=== PATIENT | female | born 1955 | race Caucasian/White ===

== ENCOUNTER 2020-03-17 14:31 | Outpatient (CLI) | payer OTHER, SELFPAY ==
--- NOTE | ~2020-03-17 | MM_ITS ---
EXAMINATION: MM screening [facility] BI w bobby HISTORY: Screening mammogram TECHNIQUE: Craniocaudal and mediolateral oblique 3-D tomosynthesis images were obtained and synthetic 2-D images were generated. CAD analysis was submitted and interpreted. COMPARISON: 03/14/2019, 03/10/2018, 03/06/2017 BREAST PARENCHYMAL COMPOSITION: There are scattered areas of fibroglandular density. FINDINGS: Scattered benign-appearing calcifications are present. Again noted is a stable asymmetry in the posterior third of the left breast on the craniocaudal view. There is no evidence of suspicious mass, calcification, or architectural distortion to suggest malignancy in either breast. There has be en no suspicious interval change. IMPRESSION: 1. No mammographic evidence of malignancy. 2. Recommend routine screening mammography in one year. BI-RADS Category 2: Benign finding(s). Reviewed, dictated and finalized at location A.
== END 2020-03-17 14:32 | disposition home or self-care (01) ==
LOC: ANHIMG 14:39
PROVIDERS: Visit Provider Family Medicine
DX: Z12.31 Encounter for screening mammogram for malignant neoplasm of breast (principal)
CPT/HCPCS: 77063; 77067

== ENCOUNTER 2020-05-24 14:16 | Outpatient (CLI) | payer OTHER, SELFPAY ==
--- NOTE | ~2020-05-24 | CT_ITS ---
EXAMINATION: CT abdomen wo con DATE: 05/24/2020 15:17 INDICATION: Left adrenal masses TECHNIQUE: Computed tomography (CT) of the abdomen was performed without intravenous contrast. The do se-length product (DLP) was 902.10 mGy-cm. Automated exposure control and iterative reconstruction te chnique were employed. COMPARISON: 04/16/2019 FINDINGS: Minimal dependent atelectasis is present in the lung bases. The heart size is normal. There is an unchanged 2.5 cm low-attenuation lesion with peripheral calcification in the spleen, likely a hemangioma. The spleen is otherwise normal. The liver, pancreas, and right adrenal gland are normal. The gallbladder is surgically absent. There are two low-attenuation masses of the left adrenal gland measuring 1.5 and 1.0 cm, most consistent with adenomas given their density and lack of interval benitez ge. There is a 3 mm nonobstructing stone of the right kidney. There are no pathologically enlarged ab dominal lymph nodes. There is no free intraperitoneal gas or evidence of bowel obstruction. There is calcified atherosclerosis of the aorta and many of the other arteries. IMPRESSION: 1. Stable low-density left adrenal masses, most consistent with adenomas. Reviewed, dictated and finalized at location A.
== END 2020-05-24 14:17 | disposition home or self-care (01) ==
LOC: ANHIMG 14:23
PROVIDERS: PCP Family Medicine; Visit Provider Family Medicine
DX: R19.09 Other intra-abdominal and pelvic swelling, mass and lump (principal); E27.9 Disorder of adrenal gland, unspecified
CPT/HCPCS: 74150

== ENCOUNTER 2021-03-20 13:54 | Outpatient (CLI) | payer OTHER, SELFPAY ==
--- NOTE | ~2021-03-20 | DEXA_ITS ---
Bone Density Report Name: Peggy Penaloza Age: 65 Sex: Female Ethnicity: White Date of : 1955 Indication: postmenopausal; cancer; hysterectomy; Referring Provider: Rick, Daly Cortez Study: Bone densitometry was performed. Exam Date: March 20, 2021 Accession number: [id number] Bone Density: Region BMD T-score Z-score Classification AP Spine (L1, L3, L4) 0.980 -0.7 1.2 Normal Femoral Neck (Left) 0.625 -2.0 -0.4 Osteopenia Total Hip (Left) 0.952 0.1 1.4 Normal Total Hip Bilateral Avg 0.937 -0.1 1.3 Normal Femoral Neck (Right) 0.653 -1.8 -0.2 Osteopenia Total Hip (Right) 0.920 -0.2 1.1 Normal World Health Organization criteria for BMD impression classify patients as: Normal (T-score at or above -1.0), Osteopenia (T-score between -1.0 and -2.5), or Osteoporosis (T-score at or below -2.5). 10-year Fracture Risk(1): Major Osteoporotic Fracture 9.9% Hip Fracture 1.4% Reported Risk Factors: [place] (), Neck BMD=0.625, BMI=34.7 (1) FRAX(R) Version 3.08. Fracture probability calculated for an untreated patient. Fracture probability may be lower if the patient has received treatment. Previous Exams: Region Exam Age BMD T-score BMD Change BMD Change Date g/cm2 vs Baseline vs Previous AP Spine(L1, L3, L4) 03/20/2021 65 0.980 -0.7 -0.132(-11.9%) -0.024(-2.4%)* 02/16/2015 59 1.004 -0.4 -0.108(-9.7%)# -0.009(-0.9%)# 01/24/2012 56 1.013 -0.4 -0.098(-8.9%)# -0.098(-8.9%)# 12/07/2009 53 1.111 0.5 Total Hip(Left) 03/20/2021 65 0.952 0.1 -0.144(-13.1%) -0.028(-2.9%)* 02/16/2015 59 0.980 0.3 -0.116(-10.5%) 0.000(0.0%)# 01/24/2012 56 0.980 0.3 -0.116(-10.6%) -0.116(-10.6%) 12/07/2009 53 1.096 1.3 Total Hip(Right) 03/20/2021 65 0.920 -0.2 -0.005(-0.5%)# -0.016(-1.7%) 02/16/2015 59 0.937 0.0 0.012(1.3%)# 0.033(3.7%)# 01/24/2012 56 0.904 -0.3 -0.021(-2.3%)# -0.021(-2.3%)# 12/07/2009 53 0.925 -0.1 *Denotes significance at 95% confidence level, LSC for AP Spine = 0.022 g/cm2, LSC for Total Hip = 0.027 g/cm2 Clinical Information Provided by Patient: Has the following medical conditions: Cancer, Hysterectomy Patient maximum height was 63 Menopause Age: 39 No regular weight bearing exercise Does not regularly consume dairy products Drinks caffeinated beverages Onset of menses at age 11 Number of children 1 Impression: The patient has low bone mass, based on t
--- NOTE | ~2021-03-20 | MM_ITS ---
EXAMINATION: MM screening [facility] BI w bobby HISTORY: Screening mammogram TECHNIQUE: Craniocaudal and mediolateral oblique 3-D tomosynthesis images were obtained and synthetic 2-D images were generated. CAD analysis was submitted and interpreted. COMPARISON: , 03/14/2019, 03/10/2018 bilateral digital screening mammogram examinations BREAST PARENCHYMAL COMPOSITION: There are scattered areas of fibroglandular density. FINDINGS: There are 2 biopsy markers on the left; history of prior benign left breast biopsy. Occasio nal bilateral benign breast calcifications. There is no evidence of suspicious mass, calcification, o r architectural distortion to suggest malignancy in either breast. There has been no suspicious inter ebony change. IMPRESSION: 1. No mammographic evidence of malignancy. 2. Recommend routine screening mammography in one year. BI-RADS Category 2: Benign finding(s). Reviewed, dictated and finalized at location A.
== END 2021-03-20 13:55 | disposition home or self-care (01) ==
LOC: ANHIMG 13:59
PROVIDERS: PCP Family Medicine; Visit Provider Internal Medicine
DX: Z12.31 Encounter for screening mammogram for malignant neoplasm of breast (principal); Z13.820 Encounter for screening for osteoporosis; M85.852 Other specified disorders of bone density and structure, left thigh; M85.851 Other specified disorders of bone density and structure, right thigh
CPT/HCPCS: 77063; 77067; 77080

== ENCOUNTER 2021-08-22 08:17 | Outpatient (CLI) | payer OTHER, SELFPAY ==
--- NOTE | ~2021-08-22 | XR_ITS ---
EXAMINATION: XR barium swallow EXAM DATE: 08/22/2021 09:02 INDICATION: Pharyngeal esophageal dysphagia. TECHNIQUE: Standard thick followed by thin contrast barium esophagram examination was performed by Dr [place], radiologist. Pulsed dose reduction fluoroscopy was used with fluoroscopic time of 0.5 . The DAP for this procedure was 1.15 Gycm2. A total of 91 images obtained for the exam. There is no prior study for comparison. FINDINGS: The pharynx is symmetric and without evidence of mass lesion or mucosal irregularity. Ther e is no esophageal stricture or mass identified. There are no esophageal diverticula. Gastroesophag eal junction is normal in appearance. IMPRESSION: Normal exam. Reviewed, dictated and finalized at location A. IMPRESSION: Normal exam.
== END 2021-08-22 08:18 | disposition home or self-care (01) ==
PROVIDERS: PCP Internal Medicine; Visit Provider Internal Medicine
DX: R13.14 Dysphagia, pharyngoesophageal phase (principal)
CPT/HCPCS: 74220

== ENCOUNTER 2022-04-05 15:03 | Outpatient (CLI) | payer OTHER, SELFPAY ==
--- NOTE | ~2022-04-05 | MM_ITS ---
EXAMINATION: MM screening [facility] BI w bobby HISTORY: Screening TECHNIQUE: Craniocaudal and mediolateral oblique 3-D tomosynthesis images were obtained and synthetic 2-D images were generated. CAD analysis was submitted and interpreted. COMPARISON: Comparison to multiple prior studies sequentially, with oldest reviewed study dated 02/22. BREAST PARENCHYMAL COMPOSITION: There are scattered areas of fibroglandular density. FINDINGS: There is no evidence of suspicious mass, calcification, or architectural distortion to sugg est malignancy in either breast. There has been no suspicious interval change. IMPRESSION: 1. No mammographic evidence of malignancy. 2. Recommend routine screening mammography in one year. BI-RADS Category 1: Negative Reviewed, dictated and finalized at location A.
== END 2022-04-05 15:04 | disposition home or self-care (01) ==
LOC: ANHIMG 15:04
PROVIDERS: PCP Internal Medicine; Visit Provider Internal Medicine
DX: Z12.31 Encounter for screening mammogram for malignant neoplasm of breast (principal)
CPT/HCPCS: 77063; 77067

== ENCOUNTER 2022-11-06 00:33 | Day surgery (SDC) | payer OTHER, SELFPAY ==
[2022-10-26 09:46] VITALS: BMI 36.6
[2022-11-06 06:56] VITALS: BP 157/74; PULSE 77; RESP 18; TEMP 36.1; O2SAT 100
[2022-11-06] MEDS: LACTATED RINGERS 1,000 ML 150 ML IV CONT (07:18)
[2022-11-06 07:19] LABS: Glucose Point of Care 155 mg/dl (65-105)
--- NOTE | 2022-11-06 07:21 | PM.HPGS ---
History of Present Illness History of Present Illness Consent: Risks, benefits, and alternatives have been discussed and questions answered. Patient agrees to proceed with procedure. Chief complaint: Hx of colon polyps Narrative: Peggy Penaloza is a 66 year old female Presents for screening colonoscopy. Patient's current weight appetite and bowel movements are normal. She denies abdominal pain. She has had no bleeding. Family history is significant her father had colon cancer. Patient's brother had colon polyps. Patient previously has had polyps herself. Most recent screening exam 5 years ago was unremarkable. Review of Systems Review of Systems: Review of systems noncontributory. ON LICENSE OF [facility] Social History Social History Smoking status: Never smoker Alcohol intake: current Alcohol use details: on occasion Substance use: never Substance use type: does not use Living arrangements: with family Spiritual care concerns: No Meds Home Medications and Allergies Home Medications Medication Instructions Recorded Confirmed Type sodium,potassium,mag sulfates 17.5 See Rx Instructions PO .COMPLEX 09/18/22 10/26/22 Rx gram-3.13 gram-1.6 gram oral soln #354 mL (Suprep Bowel Prep Kit) amlodipine 5 mg tablet 5 mg PO DAILY 10/26/22 11/06/22 History aspirin 81 mg PO DAILY 10/26/22 10/26/22 History cinnamon bark 500 mg capsule 500 mg PO DAILY 10/26/22 10/26/22 History (Cinnamon) losartan 100 mg tablet 100 mg PO DAILY 10/26/22 11/06/22 History metformin 500 mg tablet 500 mg PO DAILY 10/26/22 10/26/22 History metoprolol tartrate 50 mg tablet 50 mg PO BID 10/26/22 11/06/22 History multivit with minerals-iron 18 1 tablet PO DAILY 10/26/22 10/26/22 History mg-folic ac 400 mcg-vit K 25 mcg tablet (Adults Multivitamin) omeprazole 20 mg capsule,delayed 20 mg PO DAILY 10/26/22 10/26/22 History release rosuvastatin 10 mg tablet 10 mg PO DAILY 10/26/22 10/26/22 History egxsspv-rccw-lxstt-oreg-capryl 1 tab-cap PO DAILY 10/26/22 10/26/22 History Allergies Allergy/AdvReac Type Severity Reaction Status Date / Time No Known Allergies Allergy Verified 11/06/22 06:52 Vital Signs Vital Signs - 24 hr 11/06/22 06:56 Temperature 97 F L Pulse Rate 77 Respiratory Rate 18 Blood Pressure 157/74 H Pulse Oximetry 100 Oxygen Delivery Room Air Exam Narrative: Physical exam reveals patient to be alert. Vital signs stable. HEENT exam is unremarkable. Patient is anicteric. Lungs are clear to auscultation and percussion. Heart is without murmur or extra sounds. Abdominal exam bowel sounds are present soft nontender with no organomegaly. Digital external rectal exam is normal. Assessment and Plan Assessment and plan (1) Encounter for screening colonoscopy: Code(s): Z12.11 - Encounter for screening for malignant neoplasm of colon Status: Acute (2) Family history of colon cancer in father: Code(s): Z80.0 - Family history of malignant neoplasm of digestive organs Status: Acute Assessment and Plan: patient's father had colon cancer brother had colon polyps. Patient herself has had colon polyps. Plan for surveillance colonoscopy at 5 year intervals.
--- NOTE | 2022-11-06 07:29 | WPDANESEPPF ---
Anes - Initial Pre Proc Eval Procedure: Operation Date: 11/06/22 08:00 Proposed Procedures p Screening Colonoscopy - Brad Weber MD Date/Time: 11/06/22 07:29 Surgeon: Brad Weber MD Pre Op Diagnosis: Hx of colon polyps Patient Data Age: 66 Gender: F Height: 1.57 m Weight: 90.7 kg Last Vital Signs Temp 97 F L 11/06/22 06:56 Pulse 77 11/06/22 06:56 Resp 18 11/06/22 06:56 BP 157/74 H 11/06/22 06:56 Pulse Ox 100 11/06/22 06:56 O2 Del Method Room Air 11/06/22 06:56 Allergies Allergy/AdvReac Type Severity Reaction Status Date / Time No Known Allergies Allergy Verified 11/06/22 06:52 Home Medications Medication Instructions Recorded Confirmed Type sodium,potassium,mag sulfates 17.5 See Rx Instructions PO .COMPLEX 09/18/22 10/26/22 Rx gram-3.13 gram-1.6 gram oral soln #354 mL (Suprep Bowel Prep Kit) amlodipine 5 mg tablet 5 mg PO DAILY 10/26/22 11/06/22 History aspirin 81 mg PO DAILY 10/26/22 10/26/22 History cinnamon bark 500 mg capsule 500 mg PO DAILY 10/26/22 10/26/22 History (Cinnamon) losartan 100 mg tablet 100 mg PO DAILY 10/26/22 11/06/22 History metformin 500 mg tablet 500 mg PO DAILY 10/26/22 10/26/22 History metoprolol tartrate 50 mg tablet 50 mg PO BID 10/26/22 11/06/22 History multivit with minerals-iron 18 1 tablet PO DAILY 10/26/22 10/26/22 History mg-folic ac 400 mcg-vit K 25 mcg tablet (Adults Multivitamin) omeprazole 20 mg capsule,delayed 20 mg PO DAILY 10/26/22 10/26/22 History release rosuvastatin 10 mg tablet 10 mg PO DAILY 10/26/22 10/26/22 History ekqcghz-zrex-eipya-oreg-capryl 1 tab-cap PO DAILY 10/26/22 10/26/22 History Laboratory Tests 11/06/22 07:04 POC Capillary Glucose 155 mg/dl H mg/dl (65-105) Patient hx anesthesia problems: none Family hx anesthesia problems: none Results Review: All pre-operative results and documents have been reviewed as part of the pre-operative evaluation. [facility] Social History Social History Smoking status: Never smoker Alcohol intake: current Alcohol use details: on occasion Substance use: never Substance use type: does not use Living arrangements: with family Spiritual care concerns: No Anes - Eval Final PreProcedure Day of Procedure 11/06/22 07:29 Patient weight: obese Heart: regular rate and rhythm Lungs: clear to auscultation Airway: Mallampati scale class II Neurological: alert and oriented Last oral intake: >/= 8 hours ASA classification: III Emergent: no Anesthetic plan: proceed Anesthesia type and monitoring: general GIVS and standard monitoring Results Review: All pre-operative results and documents have been reviewed as part of the pre-operative evaluation. Informed Consent: The patient's anesthetic plan and its attendant risks and benefits were discussed with the patient/family/POA. Questions were solicited and answers provided to the satisfaction of the patient/family/POA.
[2022-11-06 08:17] VITALS: BP 145/67; PULSE 84; RESP 18; O2SAT 100
[2022-11-06 08:27] VITALS: BP 146/74; PULSE 86; RESP 18; O2SAT 99
[2022-11-06 08:37] VITALS: BP 132/62; PULSE 72; RESP 18; O2SAT 98
== END 2022-11-06 08:46 | disposition home or self-care (01) ==
PROVIDERS: PCP Internal Medicine; Visit Provider Internal Medicine Gastroenterology
PROC: 0DJD8ZZ Inspection of Lower Intestinal Tract, Via Natural or Artificial Opening Endoscopic (ICD-10-PCS; CPT 45378; principal; 2022-11-06 08:00)
DX: Z12.11 Encounter for screening for malignant neoplasm of colon (principal); K64.8 Other hemorrhoids; K57.30 Diverticulosis of large intestine without perforation or abscess without bleeding; Z86.010 Personal history of colon polyps; Z80.0 Family history of malignant neoplasm of digestive organs; Z79.82 Long term (current) use of aspirin; Z79.84 Long term (current) use of oral hypoglycemic drugs; E66.9 Obesity, unspecified; Z68.36 Body mass index [BMI] 36.0-36.9, adult
CPT/HCPCS: G0105; 82948; J2704; J7120

== ENCOUNTER 2023-06-28 08:33 | Outpatient (CLI) | payer OTHER, SELFPAY ==
--- NOTE | ~2023-06-28 | MM_ITS ---
EXAMINATION: MM screening [facility] BI w bobby HISTORY: Screening mammogram TECHNIQUE: Craniocaudal and mediolateral oblique 3-D tomosynthesis images were obtained and synthetic 2-D images were generated. Bilateral rotated lateral CC views. CAD analysis was submitted and interp reted. COMPARISON: 04/05/2022, 03/20/2021, 03/17/2020 bilateral screening mammogram examinations BREAST PARENCHYMAL COMPOSITION: There are scattered areas of fibroglandular density. FINDINGS: There are 2 biopsy markers on the left; history of 3 prior benign left breast biopsies. Occasional bilateral benign calcifications. There is no evidence of suspicious mass, calcification, o r architectural distortion to suggest malignancy in either breast. There has been no suspicious inter ebony change. IMPRESSION: 1. No mammographic evidence of malignancy. 2. Recommend routine screening mammography in one year. BI-RADS Category 2: Benign finding(s). Reviewed, dictated and finalized at location A.
== END 2023-06-28 08:34 | disposition home or self-care (01) ==
LOC: ANHIMG 08:36
PROVIDERS: PCP Internal Medicine; Visit Provider Internal Medicine
DX: Z12.31 Encounter for screening mammogram for malignant neoplasm of breast (principal)
CPT/HCPCS: 77063; 77067

== ENCOUNTER 2024-07-02 16:42 | Outpatient (CLI) | payer OTHER, SELFPAY ==
--- NOTE | ~2024-07-02 | MM_ITS ---
EXAMINATION: MM screening [facility] BI w bobyb HISTORY: Screening TECHNIQUE: Craniocaudal and mediolateral oblique 3-D tomosynthesis images were obtained and synthetic 2-D images were generated. CAD analysis was submitted and interpreted. COMPARISON: Comparison to multiple prior studies sequentially, with oldest reviewed study dated 03/10. BREAST PARENCHYMAL COMPOSITION: Not dense: There are scattered areas of fibroglandular density. FINDINGS: There is no evidence of suspicious mass, calcification, or architectural distortion to sugg est malignancy in either breast. There has been no suspicious interval change. IMPRESSION: 1. No mammographic evidence of malignancy. 2. Recommend routine screening mammography in one year. BI-RADS Category 1: Negative Reviewed, dictated and finalized at location B.
== END 2024-07-02 16:43 | disposition home or self-care (01) ==
LOC: ANHIMG 16:44
PROVIDERS: PCP Internal Medicine; Visit Provider Internal Medicine
DX: Z12.31 Encounter for screening mammogram for malignant neoplasm of breast (principal)
CPT/HCPCS: 77063; 77067

== ENCOUNTER 2025-07-28 14:49 | Outpatient (CLI) | payer OTHER, SELFPAY ==
--- OUTSIDE RECORDS SUMMARY | 2025-07-06 06:45 | XMS_ITS | Continuity of Care Document ---
Author Organization [employer] [place] Address [address] [place] [address] Phone Care Team Providers Care Customer Consultant Name Role Phone Daly Cabrera MD Unavailable Unavailable Allergies, Adverse Reactions, Alerts Substance Reaction Status Criticality No Known Allergies Active No Inform ation Medications Medication Instructions Dosage Effective Dates (start - stop) Status Comments METFORMIN HCL ER 500 MG TABLET TAKE 1 TABLET BY MOUTH DAILY WITH EVENING MEAL FOR 7 DAYS, THEN TAKE 2 TABLETS DAILY - Active ROSUVASTATIN CALCIUM 10 MG TAB TAKE 1 TABLET BY MOUTH EVERY DAY - Active OMEPRAZOLE DR 20 MG CAPSULE TAKE 1 CAPSULE BY MOUTH EVERY DAY 30 MINUTES TO 1 HOUR BEFORE A MEAL - Active LOSARTAN-HCTZ 100-12.5 MG TAB TAKE 1 TABLET BY MOUTH EVERY DAY - Active ESCITALOPRAM 5 MG TABLET TAKE 1 TABLET BY MOUTH EVERY DAY - Active turmeric root extract 500 mg capsule take 1 capsule by mouth daily - Active AMLODIPINE BESYLATE 5 MG TAB TAKE 1 TABLET BY MOUTH EVERY DAY - Active METOPROLOL TARTRATE 50 MG TAB TAKE 1 TABLET BY MOUTH TWICE A DAY WITH FOOD - Active aspirin 81 mg tablet,delayed release take 1 tablet by oral route every day 81 MG - Active One-A-Day Women's 50 Plus 400 mcg-20 mcg tablet 1 tablet daily - Active cetirizine 10 mg tablet take 1 tablet by oral route every day 10 MG - Active biotin 10,000 mcg disintegrating tablet take one tablet once a day - Active metformin ER 500 mg tablet,extended release 24 hr take 3 tablet by oral route every day with the evening meal 1500 MG - No Longer Active Procedures Procedure Date FALL RISK ASSESSMENT DOC'D PRES/ABSN URINE INCON ASSESS Pt inelig neg scrn depres MED LIST DOCD IN RCRD OFFICE [id number] Visit Complexity Inherent To E/M 2024 BODY MASS INDEX DOCD SYST BP >= 140 MM HG6 IT DIAST BP < 80 MM HG CBC, INC PLATELETS AND DIFFERENTIAL COMPREHEN METABOLIC PANEL CMP HEMOGLOBIN A1C HGA1C, GLYCO LIPID PANEL MICROALBUMIN, QN (URINE) CREATININE, (U-R) ROUTINE VENIPUNCTURE IL BASIC METABOLIC PANEL(BMP) PARATHYROID HORMONE (PTH) VITAMIN D, 25-HYDROXY OFFICE [id number]-TIF-[id number] Visit Complexity Inherent To E/M 2024 BODY MASS INDEX DOCD SYST BP GE 130 - 139MM HG DIAST BP < 80 MM HG ROUTINE VENIPUNCTURE IL BASIC METABOLIC PANEL(BMP) HEMOGLOBIN A1C HGA1C, GLYCO ROUTINE VENIPUNCTURE IL Pt inelig neg scrn depres Admin influenza virus vac RIV3 VACCINE NO PRESERV IM OFFICE [id number]-ZUS-[id number] BODY MASS INDEX DOCD SYST BP >= 140 MM HG6 IT DIAST BP < 80 MM HG CBC, INC PLATELETS AND DIFFERENTIAL COMPREHEN METABOLIC PANEL CMP HEMOGLOBIN A1C HGA1C, GLYCO LIPID PANEL MICROALBUMIN, QN (URINE) CREATININE, (U-R) ROUTINE VENIPUNCTURE IL Pt inelig neg scrn depres OFFICE [id number] Visit Complexity Inherent To E/M 2023 BODY MASS INDEX DOCD SYST BP GE 130 - 139MM HG DIAST BP < 80 MM HG BASIC METABOLIC PANEL(BMP) HEMOGLOBIN A1C HGA1C, GLYCO ROUTINE VENIPUNCTURE IL Pt inelig neg scrn depres FALL RISK ASSESSMENT DOC'D PRES/ABSN URINE INCON ASSESS Admin influenza virus vac Flu Vac, quad (RIV4), Preservative And A ntibiotic Free IM OFFICE USIUY-LJO-FNIWTBVK BODY MASS INDEX DOCD SYST BP GE 130 - 139MM HG DIAST BP < 80 MM HG CBC, INC PLATELETS AND DIFFERENTIAL COMPREHEN METABOLIC PANEL CMP HEMOGLOBIN A1C HGA1C, GLYCO LIPID PANEL MICROALBUMIN, QN (URINE) CREATININE, (U-R) ROUTINE VENIPUNCTURE IL Pt inelig neg scrn depres Brief Emotional/Behavioral A ssessment, With Scoring/Doct, Per Stndrd Instrument OFFICE NUTCE-LSA-FNOOVGCL BODY MASS INDEX DOCD SYST BP LT 130 MM HG DIAST BP < 80 MM HG BASIC METABOLIC PANEL(BMP) HEMOGLOBIN A1C HGA1C, GLYCO ROUTINE VENIPUNCTURE IL Admin influenza virus vac Flu Vac, quad (RIV4), Preservative And A ntibiotic Free IM FALL RISK ASSESSMENT DOC'D PRES/ABSN URINE INCON ASSESS Pt inelig neg scrn depres PNEUMOVAX ADM MEDICARE Pneumococcal Conjugate Vaccine (PCV20) S OFFICE OPPBY-ZFD-[id number] BODY MASS INDEX DOCD SYST BP LT 130 MM HG DIAST BP < 80 MM HG CBC, INC PLATELETS AND DIFFERENTIAL COMPREHEN METABOLIC PANEL CMP HEMOGLOBIN A1C HGA1C, GLYCO LIPID PANEL MICROALBUMIN, QN (URINE) CREATININE, (U-R) ROUTINE VENIPUNCTURE Pt inelig neg scrn depres OFFICE HYGIC-ZUI-[id number] BODY MASS INDEX DOCD SYST BP LT 130 MM HG DIAST BP < 80 MM HG EKG (ELECTROCARDIOGRAM) BASIC METABOLIC PANEL(BMP) HEMOGLOBIN A1C HGA1C, GLYCO LDL-CHOLESTEROL, DIRECT ROUTINE VENIPUNCTURE COVID-19, Amplified Probe Technique BASIC METABOLIC PANEL(BMP) HEMOGLOBIN A1C HGA1C, GLYCO MICROALBUMIN, QN (URINE) CREATININE, (U-R) ROUTINE VENIPUNCTURE Pt inelig neg scrn depres FALL RISK ASSESSMENT DOC'D PRES/ABSN URINE INCON ASSESS Admin influenza virus vac Flu Vac, quad (RIV4), Preservative And A ntibiotic Free IM OFFICE [id number]-[id number] BODY MASS INDEX DOCD SYST BP >= 140 MM HG6 IT DIAST BP < 80 MM HG CBC, INC PLATELETS AND DIFFERENTIAL COMPREHEN METABOLIC PANEL CMP LIPID PANEL ROUTINE VENIPUNCTURE HEMOGLOBIN A1C HGA1C, GLYCO Pt inelig neg scrn depres OFFICE [id number] SYST BP LT 130 MM HG DIAST BP < 80 MM HG Pt inelig neg scrn depres PNEUMOVAX ADM MEDICARE PNEUMOVAX IMMUNIZATION OFFICE [id number] BODY MASS INDEX DOCD SYST BP >= 140 MM HG6 IT DIAST BP < 80 MM HG FALL RISK ASSESSMENT DOC'D PRES/ABSN URINE INCON ASSESS OFFICE [id number] BODY MASS INDEX DOCD SYST BP >= 140 MM HG6 IT DIAST BP >= 90 MM HG CBC, INC PLATELETS AND DIFFERENTIAL ROUTINE VENIPUNCTURE Advance Directives Directive Yes / No Effective Date File Name No Information Encounters Encounter Description Practice Location Reason(s) For Visit Diagnoses Date Provider Providers Copied on Encounter [employer] [place], [address], [place], [place], [address] , [place] tel: [phone] [employer] [facility] No Information 5 Rick Kauffman. [address] [place], [address] , [place]. tel: [phone] OFFICE SPGOJ-VOR-SC TAILED [facility], [address], [place], [place], [address] , [place] tel: [phone] [facility] Chronic Conditions (chief complaint) Body mass index [BMI] 37.0-37.9, adultAsymptomatic menopausal stateAdenoma of left adrenal glandLesion of spleenType 2 diabetes mellitus with other circulatory complicationsGastr oesophageal reflux disease, unspecified whether esophagitis presentGeneralized anxiety disorderHypertensi on, unspecified typeHyperlipidemia , unspecified hyperlipidemia typeRoutine medical exam 5 Judith Baldwin. [address] [place], [place], [address] , [place]. tel: [phone] Referring Provider: Daly Alarcon, [address] [place], [address] . tel:[phone] [facility], [address], [place], [place], [address] , tel: [phone] [facility] No Information 5 [place]ann. [address], [address] , . tel: [phone] Referring Provider: Daly Alarcon, [address] [place], [address] . tel:[phone] [facility] [place], [address], [place], [place], [address] , [place] tel: [phone] [employer] [facility] Hyperlipidemia, unspecified hyperlipidemia typeEssential hypertensionType 2 diabetes mellitus with other circulatory complications 5 Rick Kauffman. [address] [place], [place], [address] , [place]. tel: [phone] Referring Provider: Daly Alarcon, [address] [place], [address] . tel:[phone] [facility], [address], [place], [place], [address] , [place] tel: [phone] [facility] No Information 5 Rick Kauffman. [address] [place], [place], [address] , [place]. tel: [phone] [facility], [address], [place], [place], [address] , [place] tel: [phone] [facility] No Information 5 Rick Kauffman. [address] [place], [place], [address] , [place]. tel: [phone] [facility], [address], [place], [place], [address] , [place] tel: [phone] [facility] No Information 5 Rick Kauffman. [address] [place], [place], [address] , [place]. tel: [phone] [facility], [address], [place], [place], [address] , tel: [phone] [facility] No Information 5 [place]le[place] Hogann. [address] [facility], [address], [address] , [place]. tel: [phone] Referring Provider: Nicolasa Wong, [address] [place], [address] . tel:[phone] OFFICE MSAZC-IIJ-MG [facility], [address], [place], [place], [address] , tel: [phone] [facility] Chronic Conditions (chief complaint) Body mass index [BMI] 36.0-36.9, adultType 2 diabetes mellitus with other circulatory complicationsLesio n of spleenAdenoma of left adrenal glandHyperlipidemi a, unspecified hyperlipidemia typeHypertension, unspecified typeGeneralized anxiety disorderAtheroscle rosis of aortaGastroesophag eal reflux disease, unspecified whether esophagitis presentHypercalcem ia 5 Judith Baldwin. [address] [place], [place], [address] , [place]. tel: [phone] Referring Provider: Daly Alarcon, [address] [place], [address] . tel:[phone] [facility], [address], [place], [place], [address] , [place] tel:[phone] [facility] No Information [address] [place] Goodman. [address] [facility], [address] [place] [address], [place], [place], [address] , [place]. tel: [phone] Referring Provider: Daly Alarcon, [address] [place], [address] . tel:[phone] [facility], [address], [place], [place], [address] , [place] tel: [phone] [facility] Type 2 diabetes mellitus with other circulatory complicationsEssen tial hypertension 5 Rick Kauffman. [address] [place], [place], [address] , [place]. tel: [phone] Referring Provider: Daly Alarcon, [address] [place], [address] . tel:[phone] [facility], [address], [place], [place], [address] , [place] tel: [phone] [facility] [place] No Information 4 Rick Kauffman. [address] [place], [place], [address] , [place]. tel: [phone] [facility], [address], [place], [place], [address] , [place] tel: [phone] [facility] [place] No Information 4 Judith Baldwin. [address] [place], [place], [address] , [place]. tel: [phone] [facility], [address], [place], [place], [address] , [place] tel: [phone] [facility] [place] Skin lesion 4 Rick Kauffman. [address] [place], [place], [address] , [place]. tel: [phone] [facility], [address], [place], [place], [address] , [place] tel: [phone] [facility] [place] No Information 4 Jasiel. [address] [place], [place], [address] , [place]. tel: [phone] OFFICE IFGHN-ZKT-HLLegacy [facility], [address], [place], [place], [address] , tel: [phone] [facility] Chronic Conditions (chief complaint) Body mass index [BMI] 37.0-37.9, adultType 2 diabetes mellitus with other circulatory complicationsMorbi d obesityHyperlipide emily, unspecified hyperlipidemia typeHypertension, unspecified typeRoutine medical examAdenoma of left adrenal glandLesion of spleen 4 Rick Kauffman. [address] [place], [place], [address] , [place]. tel: [phone] Referring Provider: Daly Alarcon, [address] [place], [address] . tel:[phone] [facility], [address], [place], [place], [address] , [place] tel: [phone] [facility] No Information [address] [place] Hogann. [address], [address] , [place]. tel: [phone] Referring Provider: Daly Alarcon, [address] [place], [address] . tel:[phone] [facility], [address], [place], [place], [address] , [place] tel: [phone] [facility] Hyperlipidemia, unspecified hyperlipidemia typeHypertension, unspecified typeType 2 diabetes mellitus with other circulatory complications 4 Rick Kauffman. [address] [place], [place], [address] , [place]. tel: [phone] Referring Provider: Daly Alarcon, [address] [place], [address] . tel:[phone] OFFICE ZVBHV-YHD-DA [facility], [address], [place], [place], [address] , [place] tel: [phone] [facility] f/u chronic conditions (chief complaint) Body mass index [BMI] 36.0-36.9, adultGastroesophag eal reflux disease, unspecified whether esophagitis presentMorbid obesityType 2 diabetes mellitus with other circulatory complicationsHyper tension, unspecified typeAtherosclerosi s of aortaGeneralized anxiety disorderAdrenal adenoma, unspecified lateralityHyperlip idemia, unspecified hyperlipidemia typeLesion of spleenLateral pain of left hipPain of left shoulder region 4 Rcik Kauffman. [address] [place], [place], [address] , [place]. tel: [phone] Referring Provider: Daly Alarcon, [address] [place], [address] . tel:[phone] [facility], [address], [place], [place], [address] , [place] tel: [phone] [facility] No Information [address] [place] Goodman. [address] [facility], [address] [place] [address], [place], [place], [address] , [place]. tel: [phone] Referring Provider: Daly Alarcon, [address] [place], [address] . tel:[phone] [facility], [address], [place], [place], [address] , [place] tel: [phone] [facility] Type 2 diabetes mellitus with other circulatory complicationsHyper tension, unspecified type 4 Rick Kauffman. [address] [place], [place], [address] , [place]. tel: [phone] Referring Provider: Daly Alarcon, [address] [place], [address] . tel:[phone] [facility], [address], [place], [place], [address] , [place] tel: [phone] [facility] No Information 3 Rick Kauffman. [address] [place], [place], [address] , [place]. tel: [phone] [facility] [place], [address], [place], [place], [address] , [place] tel: [phone] [facility] Routine eye exam 3 Rick Kauffman. [address] [place], [place], [address] , [place]. tel: [phone] OFFICE SVCBI-QPA-LG TAILED [facility], [address], [place], [place], [address] , [place] tel: [phone] [facility] Chronic Conditions (chief complaint) Body mass index [BMI] 36.0-36.9, adultType 2 diabetes mellitus with other circulatory complicationsMorbi d obesityHypertensio n, unspecified typeRoutine medical examPain, joint, shoulder, leftGastroesophage al reflux disease, unspecified whether esophagitis present 3 Rick Kauffman. [address] [place], [place], [address] , [place]. tel: [phone] Referring Provider: Daly Alarcon, [address] [place], [address] . tel:[phone] [facility], [address], [place], [place], [address] , [place] tel: [phone] [facility] No Information [address] [place] Goodman. [address], [address] , [place]. tel: [phone] Referring Provider: Daly Alarcon, [address] [place], [address] . tel:[phone] [facility] [place], [address], [place], [place], [address] , [place] tel: [phone] [facility] Type 2 diabetes mellitus with other circulatory complicationsHyper tension, unspecified typeHyperlipidemia , unspecified hyperlipidemia type 3 Rick Kauffman. [address] [place], [place], [address] , [place]. tel: [phone] Referring Provider: Daly Alarcon, [address] [place], [address] . tel:[phone] [facility], [address], [place], [place], [address] , [place] tel: [phone] [facility] No Information 3 Rick Kauffman. [address] [place], [place], [address] , [place]. tel: [phone] [facility], [address], [place], [place], [address] , [place] tel: [phone] [facility] Skin lesion 3 Rick Kauffman. [address] [place], [place], [address] , [place]. tel: [phone] OFFICE HRKXR-UCE-WC TAILED [facility], [address], [place], [place], [address] , [place] tel: [phone] [facility] [facility] Chronic conditions (chief complaint)C hronic Conditions (chief complaint) Body mass index [BMI] 36.0-36.9, adultHyperlipidemi a, unspecified hyperlipidemia typeMorbid obesityType 2 diabetes mellitus with other circulatory complicationsHyper tension, unspecified typeGeneralized anxiety disorderAdrenal adenoma, unspecified lateralityAtherosc lerosis of aortaGastroesophag eal reflux disease, unspecified whether esophagitis presentLesion of spleen 3 Rick Kauffman. [address] [place], [place], [address] , [place]. tel: [phone] Referring Provider: Daly Alarcon, [address] [place], [address] . tel:[phone] [facility], [address], [place], [place], [address] , [place] tel: [phone] [facility] No Information [address] [place] Goodman. [address], [address] , [place]. tel: [phone] Referring Provider: Daly Alarcon, [address] [place], [address] . tel:[phone] [facility], [address], [place], [place], [address] , [place] tel: [phone] [facility] Type 2 diabetes mellitus with other circulatory complicationsHyper tension, unspecified typeHyperlipidemia , unspecified hyperlipidemia type Jan- 3 Rick Kauffman. [address] [place], [place], [address] , [place]. tel: [phone] Referring Provider: Daly Alarcon, [address] [place], [address] . tel:[phone] [facility], [address], [place], [place], [address] , [place] tel: [phone] [facility] Skin lesion 3 Rick Kauffman. [address] [place], [place], [address] , [place]. tel: [phone] [facility], [address], [place], [place], [address] , [place] tel: [phone] [place] Skin lesion 2 Rick Kauffman. [address] [place], [place], [address] , [place]. tel: [phone] OFFICE HUMIK-NPR-HQ [facility] [address] [facility], [address], [place], [place], [address] , tel: [phone] [place] Chronic Conditions (chief complaint) Body mass index [BMI] 35.0-35.9, adultType 2 diabetes mellitus with other circulatory complicationsHyper tension, unspecified typeHyperlipidemia , unspecified hyperlipidemia typeFamily history of colon cancerMorbid obesityShiprock-Northern Navajo Medical Centerb medical exam 2 Rick Kauffman. [address] [place], [place], [address] , [place]. tel: [phone] Referring Provider: Daly Alarcon, [address] [place], [address] . tel:[phone] [facility], [address], [place], [place], [address] , [place] tel: [phone] [place] Hypertension, unspecified typeHyperlipidemia , unspecified hyperlipidemia typeHyperglycemiaT ype 2 diabetes mellitus with other circulatory complications Sep-2 2 Rick Kauffman. [address] [place], [place], [address] , . tel:[phone] Referring Provider: Daly Alarcon, [address] [place], [address] . [phone] OFFICE AXCVA-FND-NB [facility] [address], [address], [place], [place], [address] , tel: [phone] [place] chronic conditions (chief complaint)C hronic Conditions (chief complaint) Body mass index [BMI] 35.0-35.9, adultChest pressureHyperlipid emia, unspecified hyperlipidemia typeHypertension, unspecified typeGastroesophage al reflux disease, unspecified whether esophagitis presentAtheroscler osis of aortaAdrenal adenoma, unspecified lateralityType 2 diabetes mellitus with other circulatory complicationsHeart murmur Jan- 2 Rick Kauffman. [address] [place], [place], [address] , . [phone] Referring Provider: Daly Alarcon, [address] [place], [address] . tel:[phone] [facility], [address], [place], [place], [address] , tel: [phone] [place] Hyperlipidemia, unspecified hyperlipidemia typeHyperglycemiaH ypertension, unspecified type 2 Rick Kauffman. [address] [place], [place], [address] , [place]. tel:[phone] Referring Provider: Daly Alarcon, [address] [place], [address] . tel:[phone] [facility], [address], [place], [place], [address] , tel: [phone] [place] Stuffy and runny noseExposure to COVID-19 virus 2 Rick Kauffman. [address] [place], [place], [address] , . tel: [phone] Referring Provider: Daly Alarcon, [address] [place], [address] . tel:[phone] [facility], [address], [place], [place], [address] , tel: [phone] [place] Hypertension, unspecified typeElevated glucose Oct-2 1 Rick Kauffman. [address] [place], [place], [address] , . tel: [phone] Referring Provider: Daly Alarcon, [address] [place], [address] . tel:[phone] [facility], [address], [place], [place], [address] , tel: [phone] [place] No Information Aug- 1 Rikc Kauffman. [address] [place], [place], [address] , . tel: [phone] OFFICE PAEUY-FXG-DX TAILED [facility], [address], [place], [place], [address] , tel: [phone] [place] Chronic Conditions (chief complaint) Body mass index (BMI) 35.0-35.9, adultGastroesophag eal reflux disease, unspecified whether esophagitis presentHypertensio n, unspecified typeHyperlipidemia , unspecified hyperlipidemia typePharyngoesopha geal dysphagiaAtheroscl erosis of aortaAdrenal adenoma, unspecified lateralityElevated glucose Jul- 1 Rick Kauffman. [address] [place], [place], [address] , [place]. tel: [phone] Referring Provider: Daly lAarcon, [address] [place], [address] . tel:[phone] [facility], [address], [place], [place], [address] , tel: [phone] [place] Hypertension, unspecified typeHyperlipidemia , unspecified hyperlipidemia typeHyperglycemia Jul- 1 Rick Kauffman. [address] [place], [place], [address] , [place]. tel: [phone] Referring Provider: Daly Alarcon, [address] [place], [address] . tel:[phone] [facility], [address], [place], [place], [address] , tel: [phone] [place] Neoplasm of unspecified behavior of bone, soft tissue, and skin 1 Rick Kauffman. [address] [place], [place], [address] , [place]. tel: [phone] [facility]ICE [facility], [address], [place], [place], [address] , tel: [phone] [place] chronic conditions (chief complaint)C hronic Conditions (chief complaint) Hypertension, unspecified typeHyperlipidemia , unspecified hyperlipidemia typeGastroesophage al reflux disease, unspecified whether esophagitis present 1 Rick Kauffman. [address] [place], [place], [address] , [place]. tel: [phone] Referring Provider: Daly Alarcon, [address] [place], [address] . tel:[phone] OFFICE ONWTK[facility]ORF[facility], [address], [place], [place], [address] , tel: [phone] [place] F/u HTN (chief complaint) Hypertension, unspecified typeBody mass index (BMI) 34.0-34.9, adultHyperlipidemi a, unspecified hyperlipidemia type Jan- 1 Judith Baldwin. [address] [place], [place], [address] , [place]. tel: [phone] Referring Provider: Daly Alarcon, [address] [place], [address] . tel:[phone] [facility], [address], [place], [place], [address] , tel: [phone] [place] No Information Jan- 1 Rick Kauffman. [address] [place], [place], [address] , [place]. 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 [address] [place], [place], [address] , . tel: [phone] Referring Provider: Daly Alarcon, [address] [place], [address] . tel:[phone] Family History Family Member Type Diagnosis Age At Onset Father Problem cancer of colon Mother Problem Diabetes mellitus Mother Problem hypertension Immunizations Vaccine Date Status Comments RSV, bivalent, protein subun it RSVpreF, diluent reconstituted, 0.5 mL, PF administered Source: Other Provid er Flublok, Trivalent, preservative free, 18+ yrs, 0.5mL dosage administered Source: New Immuniza tion Record zoster recombinant administered Note: [facility] ; Source: Other Provider Flublok, quadrivalent, preservative free, 0.5mL dosage administered Source: New Immunization Record SHINGRIX (Zoster vaccine recombinant, adjuvanted) administered Note: [facility] ; Jeana rce: Source Unspecified Pneumococcal conjugate PCV20 administered Source: New Immunization Record Flublok, quadrivalent, preservative free, 0.5mL dosage administered Source: New Immunization Record Pfizer (Bivalent Booster) CO VID Vac, 30mcg/0.3mL, 12+ years administered Note: [facility] ; S ource: Source Unspecified [employer] COVID19 Vaccine, 0.3mL per dose, 2 doses, administered 21 days apart administered Note: [facility] ; So urce: Source Unspecified Flublok, quadrivalent, preservative free, 0.5mL dosage administered Source: New Immunization Record Pneumococcal polysaccharide PPV23 Mar-29-2021 administered Source: New Immuniza tion Record Pfizer-BioNTech COVID19 Vaccine, 0.3mL per dose, 2 doses, administered 21 days apart administered Note: [place] ; Source: Source Unspecified Pfizer-BioNTech COVID19 Vaccine, 0.3mL per dose, 2 doses, administered 21 days apart administered Note: [place] ; Source: Source Unspecified Flublok, quadrivalent, preservative free, 0.5mL dosage administered Source: Source Unspecified Hep B, adult, 3 dose administered Source: Source Unspecified hepatitis B vaccine, unspecified formulation administered Source: Source U nspecified hepatitis B vaccine, unspecified formulation administered Source: Source U nspecified Payers Payer name Insurance type Covered libertarian ID Authoriza tion(s) [employer] MB [id number] [employer] MB [id number] [employer] MB [id number] [employer] MB [id number] [employer] MB [id number] [employer] MB [id number] [employer] MB [id number] Social History Type Description Quantity Date Captured Comments Sex Female Smoking Status No Information Sexual Orientation Straight or heterosexual Gender Identity Female Chief Complaint And Reason For Visit No Information Reason For Referral Reason For Referral No Information Plan Of Treatment Date Type Action Status Goal Dietary manageme nt education, guidance, and counseling completed Goal Dietary manageme nt education, guidance, and counseling completed Goal Dietary manageme nt education, guidance, and counseling completed Goal Dietary manageme nt education, guidance, and counseling completed Goal Dietary manageme nt education, guidance, and counseling completed Goal Dietary manageme nt education, guidance, and counseling completed Goal Dietary manageme nt education, guidance, and counseling completed Goal Dietary manageme nt education, guidance, and counseling completed Goal Dietary manageme nt education, guidance, and counseling completed Goal Dietary manageme nt education, guidance, and counseling completed Goal Dietary manageme nt education, guidance, and counseling completed Referral Ordered: Michelle Delaney MD -Dermatology (related to Skin lesion) ordered Referral Ordered: Michelle Delaney MD -Dermatology (related to Routine eye exam) ordered Referral Ordered: Michelle Delaney MD -Dermatology (related to Skin lesion) ordered Referral Ordered: Michelle Delaney MD -Dermatology (related to Skin lesion) ordered Referral Ordered: COLONOSCOPY, Flexible, Proximal To Splenic, Diagnostic, Wor W/O Collection Of Sp ordered Referral Ordered: 2D echocardiography ordered Referral Ordered: Myocardial SPECT multiple studies ordered Referral Ordered: EKG (ELECTROCARDIOGRAM) ordered Referral Referred To: [address] [place] [address], [address] [phone] Ordered: Barium swallow ordered Referral Referred To: Michelle Delaney MD [address] [place], [address] [phone] Ordered: Referrals: Dermatology. Michelle Delaney MD. Evaluation/diagnostic/treatment - Level 3 Appointment date/timeframe: 07/26/2021 ordered Referral Referred To: [address], [address] [phone] Ordered: DEXA of spine and hip ordered Appointment Peggy Penaloza BOOKED Appointment Peggy Penaloza BOOKED History Of Present Illness Encounter Date Complaint History Of Prese nt Illness Chronic Conditions *See Chronic Conditions HPI Chronic Conditions *See Chronic Conditions HPI Chronic Conditions *See Chronic Conditions HPI f/u chronic conditions Type 2 di abetes mellitus with other circulatory complicationsStablestable on metformin without SE'sZsfQ1k 7.1% on recent labsHas htn as a circulatory complication of DM stable on medsHypertension, unspecified typeStableHas htn as a circulatory complication of DM stable on medsAtherosclerosis of aortaStableCT 05/24/20- denies any CP on rosuvastatin without SE'sMorbid obesityStableBMI over 35 with comorbidities of HTN, DM, GERDAdrenal adenoma, unspecified lateralityStablenoted on prior imaging- see CT 05/24/20No abd painBP controlledLesion of spleenStablecalcified area noted in spleen on CT 05/24/20- no abd painHyperlipidemia, unspecified hyperlipidemia typeStablecontrolled on rosuvastatin without SE'sGeneralized anxiety disorderstable- feels she is coping with stressors better on lexapro without SE'sHaving persistent pain over left shoulder and left lateral hip for past 6 months.Pain in shoulder worse with overhead movements.Pain in left hip worse with laying on left sideTries to do some regular walking but not much stretchingGastroesophageal reflux disease, unspecified whether esophagitis presentStableGERD controlled on omeprazole without SE's Chronic Conditions *See Chronic Conditions [facility] Chronic Conditions *See Chronic Conditions [facility] Chronic conditions Chronic Conditions *See Chronic Conditions [facility] chronic conditions Chronic Conditions *See Chronic Conditions [facility] Chronic Conditions *See Chronic Conditions [facility] chronic conditions Chronic Conditions *See Chronic Conditions [facility] F/u HTN 65 year old allie warner who presents for followup of HTN. She had elevated blood pressure readings at her new patient appt 3 weeks ago. No medication changes were made at that timeHome BP readings: 140s/70sNo chest pain, SOB, headaches. 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 Patient's last visit to a primary care provider was 6 months ago. Her previous doctor retired. She has a friend who comes to our office. She is to her and has a puppy at home. 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 No acute issuesChronicHTNPatient takes losartan, metoprololHome BP readings: 130-140/60sHLDPatient takes simvastatin with no side effectsSeasonal allergiesPatient takes zyrtec daily. Specialists/Other Providers: noneAllergies: NKDAScreeningsColonoscopy - 2017 - gets every 5 years per patient (Dr Weber)Dexa - unsure - [facility]) - will get recordsImmunizationsInfluenza - UTDPneumonia - DUE NOW - will get at next appt. Patient is in the middle of COVID vaccine seriesCOVID - first injection 01/03/2021 - due on 01/24/2021 for second injectionShingrix - DUE NOW Functional Status Date Functional Assessmen t No Information Instructions Date Instruction Additional Infor daniel Continue losartan/HC TZ, metoprololcontinue low salt diet and regular walking Related to Hypertension, unspecified type Continue escitalopram 5mg daily Related to Generalized anxiety disorder Followup in 6 months Call to schedule DEXA when you are scheduled for mammogramYou can go to pharmacy for Tdap Related to Routine medical exam continue rosuvastati n Continue to work on low fat diet and increase regular exercise with goal of walking at least 30 minutes 3-5 times per week Related to Hyperlipidemia, unspecified hyperlipidemia type continue omeprazole Related to G astroesophageal reflux disease, unspecified whether esophagitis present Continue close monitoring Relate d to Lesion of spleen Continue Metformin. Increase to 3 tablets daily. You can split these up if you would likeContinue to get annual diabetic eye exams Related to Type 2 diabetes mellitus with other circulatory complications Continue close monitoring Relate d to Adenoma of left adrenal gland Dietary management e ducation, guidance, and counseling Related to Body mass index (BMI) 37.0-37.9, adult Fall Risk Prevention Urinary Incontinence We will recheck BMP today along with PTH and vitamin D level Related to Hypercalcemia This is a common fin ding on CT scans with mild plaque build up on the aorta. Continue to work on good blood pressure and cholesterol control to reduce cardiovascular risk. Related to Atherosclerosis of aorta Continue losartan/hc tz continue low salt diet and regular walking Related to Hypertension, unspecified type Continue escitalopram 5mg daily Related to Generalized anxiety disorder continue rosuvastati n Continue to work on low fat diet and increase regular exercise with goal of walking at least 30 minutes 3-5 times per week Related to Hyperlipidemia, unspecified hyperlipidemia type continue omeprazole Related to G astroesophageal reflux disease, unspecified whether esophagitis present continue close monitoring Relate d to Lesion of spleen Continue MetforminCo ntinue to get annual diabetic eye exams Related to Type 2 diabetes mellitus with other circulatory complications continue close monitoring Relate d to Adenoma of left adrenal gland Dietary management e ducation, guidance, and counseling Related to Body mass index (BMI) 36.0-36.9, adult continue close monitoring Relate d to Lesion of spleen continue close monitoring Relate d to Adenoma of left adrenal gland Flu vaccine given to dayContinue Regular walkingContinue regular mammograms annually Related to Routine medical exam continue rosuvastatin Related to Hyperlipidemia, unspecified hyperlipidemia type continue to work on low fat diet and regular exercise Related to Morbid obesity Continue losartan/hc tz continue low salt diet and regular walking Related to Hypertension, unspecified type Change to metformin extended release- 500mg once daily with a meal x 1 week then increase to 1000mg (2 of the 500mg tabs) once daily with a mealIf you do not tolerate the increased dose of metformin, we can consider switching you to RybelsusCheck labs in 4 months Related to Type 2 diabetes mellitus with other circulatory complications Urinary Incontinence Exercise Dietary management e ducation, guidance, and counseling Related to Body mass index (BMI) 37.0-37.9, adult Fall Risk Prevention Continue exercises a s instructed on the handoutyou can take Tylenol and Aleve as neededfollow up if any worsening symptoms Related to Pain of left shoulder region start exercises as i nstructed on the handoutyou can take Tylenol and Aleve as needed Related to Lateral pain of left hip continue close monit oringfollow up if any abdominal pain Related to Lesion of spleen continue rosuvastatin Related to Hyperlipidemia, unspecified hyperlipidemia type Continue losartan/hc tz continue low salt diet and regular walking Related to Hypertension, unspecified type continue to work on low fat diet and regular exercise Related to Morbid obesity This is a common fin ding on CT scans with mild plaque build up on the aorta. Continue to work on good blood pressure and cholesterol control to reduce cardiovascular risk. Related to Atherosclerosis of aorta monitor for any abdo mali pain and f/u if any worsening Related to Adrenal adenoma, unspecified laterality Continue metformin o nce daily with a mealCheck labs in 6 months prior to your next follow up appointment Related to Type 2 diabetes mellitus with other circulatory complications Continue lexapro 5mg daily Relat ed to Generalized anxiety disorder continue omeprazole Related to G astroesophageal reflux disease, unspecified whether esophagitis present Exercise Dietary management e ducation, guidance, and counseling Related to Body mass index (BMI) 36.0-36.9, adult continue omeprazole Related to G astroesophageal reflux disease, unspecified whether esophagitis present Start exercises as i nstructed on the handoutfollow up if no improvement or any worsening Related to Pain, joint, shoulder, left Flu vaccine given to dayRecommend getting the newest COVID vaccine at the pharmacyContinue Regular walkingContinue regular mammograms annually Related to Routine medical exam Continue losartan/hc tz continue low salt diet and regular walking Related to Hypertension, unspecified type Continue metformin o nce daily with a mealCheck labs in 6 months prior to your next follow up appointment Related to Type 2 diabetes mellitus with other circulatory complications continue to work on low fat diet and regular exercise Related to Morbid obesity Fall Risk Prevention Dietary management e ducation, guidance, and counseling Related to Body mass index (BMI) 36.0-36.9, adult Immunizations Urinary Incontinence continue close monit oringfollow up if any abdominal pain Related to Lesion of spleen monitor for any abdo mali pain and f/u if any worsening Related to Adrenal adenoma, unspecified laterality This is a common fin ding on CT scans with mild plaque build up on the aorta. Continue to work on good blood pressure and cholesterol control to reduce cardiovascular risk. Related to Atherosclerosis of aorta continue omeprazole Related to G astroesophageal reflux disease, unspecified whether esophagitis present Start lexapro 5mg da talya- reviewed possible side effectsCall back if you are interested in seeing a counselor Related to Generalized anxiety disorder Continue metformin o nce daily with a mealCheck labs in 6 months prior to your next follow up appointment Related to Type 2 diabetes mellitus with other circulatory complications Continue medication as prescribed.Cont. to work on low fat diet and increase regular exercise with goal of walking at least 30 min. 3 to 5 times per week. Related to Hyperlipidemia, unspecified hyperlipidemia type Stop the losartanSta rt losartan/hctz continue low salt diet and regular walking Related to Hypertension, unspecified type continue to work on low fat diet and regular exercise Related to Morbid obesity Dietary management e ducation, guidance, and counseling Related to Body mass index (BMI) 36.0-36.9, adult Exercise Flu vaccine and Prev vladimir [address] Weber for your colonoscopyContinue regular exerciseContinue yearly mammograms Related to Routine medical exam continue to work on low fat diet and regular exercise Related to Morbid obesity Refer to Dr. Weber, GI, for colonoscopy you are due for Related to Family history of colon cancer Continue metformin o nce daily with a mealCheck labs in 6 months prior to your next follow up appointmentStatus: Able to self-manage condition. Goals: Your goal is to work on healthy eating habits. Barriers: No barriers to goal achievement have been identified. Related to Type 2 diabetes mellitus with other circulatory complications Continue medication as prescribed.Cont. to work on low fat diet and increase regular exercise with goal of walking at least 30 min. 3 to 5 times per week. Related to Hyperlipidemia, unspecified hyperlipidemia type Continue current med s and low salt dietCheck your home BP readings and please call or send in your readings in 1 monthIf your blood pressure is consistently above 140/90, we will change to losartan/hctz to help lower your blood pressure Related to Hypertension, unspecified type Dietary management e ducation, guidance, and counseling Related to Body mass index (BMI) 35.0-35.9, adult Fall Risk Prevention Urinary Incontinence Immunizations check echocardiogram Related to Heart murmur Try taking 1/2 of me tformin daily with a meal on a full stomach to see if this helps to improve your diarrheaCheck labs in 6 monthsStatus: Able to self-manage condition. Goals: Your goal is to work on healthy eating habits. Barriers: No barriers to goal achievement have been identified. Related to Type 2 diabetes mellitus with other circulatory complications EKG done today- no i schemic changesEchocardiogram and stress testing orderedStart baby aspirin 81mg daily- reviewed possible side effects Related to Chest pressure continue omeprazole Related to G astroesophageal reflux disease, unspecified whether esophagitis present monitor for any abdo mali pain and f/u if any worsening Related to Adrenal adenoma, unspecified laterality This is a common fin ding on CT scans with mild plaque build up on the aorta. Continue to work on good blood pressure and cholesterol control to reduce cardiovascular risk. Related to Atherosclerosis of aorta Continue current med s and low salt diet Related to Hypertension, unspecified type Continue medication as prescribed.Cont. to work on low fat diet and increase regular exercise with goal of walking at least 30 min. 3 to 5 times per week. Related to Hyperlipidemia, unspecified hyperlipidemia type Exercise Dietary management e ducation, guidance, and counseling Related to Body mass index (BMI) 35.0-35.9, adult Status: Meeting gamal tment plan goals. Goals: Your goal is to work on healthy eating habits. Barriers: No barriers to goal achievement have been identified.Check hemoglobin a1c Related to Elevated glucose monitor for any abdo mali pain and f/u if any worsening Related to Adrenal adenoma, unspecified laterality This is a common fin ding on CT scans with mild plaque build up on the aorta. Continue to work on good blood pressure and cholesterol control to reduce cardiovascular risk. Related to Atherosclerosis of aorta Barium swallow ordered Related t o Pharyngoesophageal dysphagia Continue medication as prescribed.Cont. to work on low fat diet and increase regular exercise with goal of walking at least 30 min. 3 to 5 times per week. Related to Hyperlipidemia, unspecified hyperlipidemia type Continue current med s and low salt diet Related to Hypertension, unspecified type Start omeprazole lawanda ly- take at least 15 minutes prior to breakfast Related to Gastroesophageal reflux disease, unspecified whether esophagitis present Immunizations Dietary management e ducation, guidance, and counseling Related to Body mass index (BMI) 35.0-35.9, adult You can try over the counter pepcid as needed Related to Gastroesophageal reflux disease, unspecified whether esophagitis present Continue rosuvastati nCheck labs in 5 months prior to your physical Continue to work on low fat diet and increase regular exercise with goal of walking at least 30 minutes 3-5 times per week Related to Hyperlipidemia, unspecified hyperlipidemia type Continue amlodipine and losartanContinue to work on increasing exercise such as walking. Continue to limit salt intake. Monitor your home blood pressure. Call our office if blood pressure is consistently over 140/90 Related to Hypertension, unspecified type STOP SIMVASTATINBEGI N TAKING ROSUVASTATIN Continue to work on low fat diet and increase regular exercise with goal of walking at least 30 minutes 3-5 times per week Related to Hyperlipidemia, unspecified hyperlipidemia type BEGIN TAKING AMLODIP INERETURN IN ONE MONTHContinue to work on increasing exercise such as walking. Continue to limit salt intake. Monitor your home blood pressure. Call our office if blood pressure is consistently over 140/90 Related to Hypertension, unspecified type Dietary management e ducation, guidance, and counseling Related to Body mass index (BMI) 34.0-34.9, adult Continue cetirizine Related to S easonal allergies Continue to work on low fat diet and increase regular exercise with goal of walking at least 30 minutes 3-5 times per week Related to Hyperlipidemia, unspecified hyperlipidemia type CONTINUE MEDICATIONS FOLLOWUP IN 3 WEEKS AND BRING IN YOUR MONITOR WELL LOG OF BP READINGS Continue to work on increasing exercise such as walking. Continue to limit salt intake. Monitor your home blood pressure. Call our office if blood pressure is consistently over 140/90 Related to Hypertension, unspecified type Urinary Incontinence Dietary management e ducation, guidance, and counseling Related to Body mass index (BMI) 34.0-34.9, adult Fall Risk Prevention Assessments Type Assessment Date No Information Patient Care Teams Name Effective Dates (start - stop) Status Members No Information
--- NOTE | ~2025-07-28 | MM_ITS ---
EXAMINATION: MM screening [facility] BI w bobby HISTORY: Screening TECHNIQUE: Craniocaudal and mediolateral oblique 3-D tomosynthesis images were obtained and synthetic 2-D images were generated. CAD analysis was submitted and interpreted. COMPARISON: Mammograms from 07/02/2024 and 06/28/2023 BREAST PARENCHYMAL COMPOSITION: There are scattered areas of fibroglandular density. FINDINGS: There is no evidence of suspicious mass, calcification, or architectural distortion to suggest malignancy. There has been no suspicious interval change. IMPRESSION: 1. No mammographic evidence of malignancy. Recommend routine screening mammography in one year. BI-RADS Category 2: Benign finding(s) Reviewed, dictated and finalized at location Q. IMPRESSION: 1. No mammographic evidence of malignancy. Recommend routine screening mammogra phy in one year. BI-RADS Category 2: Benign finding(s)
--- OUTSIDE RECORDS SUMMARY | 2025-07-28 16:17 | XMS_ITS | Clinical Summary ---
Author Organization [facility] Address [address] [place] [address] Care Team Providers Care Recapper Name Role Phone Daly Cabrera MD Primary Care Provider [phone] Allergies No known active allergies Medications metoprolol tartrate 50 MG tablet Take by mouth 2 (two) times daily. Active Multiple Vitamins-Minera ls (MULTIVITAMIN ADULTS OR) Active Cinnamon 500 MG capsule 2 capsules daily (patient has 1500mg capsules) Active rosuvastatin 10 MG tablet Take 1 tablet by mouth daily. 01/26/2022 Active amLODIPine 5 MG tablet Take 1 tablet by mouth daily. 01/26/2022 Active Cetirizine HCl 10 MG Cap Active metFORMIN 500 MG tablet TAKE 1 TABLET BY MOUTH EVERY DAY WITH A MEAL 01/26/2022 Active Aspirin 81 MG Cap Active losartan 100 MG tablet Take 100 mg by mouth daily. 03/22/2022 Active Biotin 1000 MCG Chew Tab Chew 1 tablet by mouth daily. Active Turmeric (QC TUMERIC COMPLEX) 500 MG Cap Active Active Problems Problem Noted Date Diagnosed Date COVID-19 04/05/2022 Type 2 diabetes mellitus ([facility]/HCC [facility]/HCC) 02/12 Adrenal adenoma 08/10/2021 Atherosclerosis of aorta 08/10/2021 Gastroesophageal reflux disease 03/21/2021 Hyperlipidemia 01/16/2021 Hypertensive disorder 01/16/2021 Family History Medical History Relation Comments Colon Cancer Father Metastatic to th e lungs Heart Attack Maternal Grandmother Arthritis Mother Relation Status Comments Father Maternal Grandmother Mother Social History Tobacco Use Types Packs/Day Years Used Date Smoking Tobacco: Never Smokeless Tobacco: Never Alcohol Use Standard Drinks/Week Comments Yes 0 (1 standard drink = 0.6 oz pur e alcohol) SOCIALLY (4 per week) Comments No Sex and Gender Information Value Date Recorded Sex Assigned at Not on file Legal Sex Female 5:58 PM CDT Gender Identity Female 03/19/2022 9:28 AM CDT Sexual Orientation Straight 03/19/2022 9: 28 AM CDT Last Filed Vital Signs Vital Sign Reading Time Taken Comments Blood Pressure 146/78 04/05/2022 11:10 AM CDT Pulse 80 04/05/2022 11:10 AM CDT Temperature 36.7 C (98 F) 10/17/2019 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 Respiratory Rate 20 10/17/2019 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 Oxygen Saturation 98% 04/05/2022 11:10 AM CDT Inhaled Oxygen Concentration - - Weight 91.2 kg (201 lb) 04/05/2022 11:10 AM CDT Height 157.5 cm (5' 2) 04/05/2022 11:10 AM CDT Body Mass Index 36.76 04/05/2022 11:10 AM CDT Plan of Treatment Health Maintenance Due Date Last Done Comments ASCVD LDL 1954 ASCVD Statin 1954 Colorectal Cancer Screening Colonoscopy (10 Years) 1954 Kidney Health Evaluation 1954 Hemoglobin A1C 1954 Diabetes: Retinopathy Eye Exam 1972 Hepatitis C 1972 DTaP, Tdap and Td Vaccines ( 1 - Tdap) 1973 Mammogram Screening 1994 Zoster Vaccines (1 of 2) 2004 Annual Medicare Wellness Visit 2019 Dexa Scan (General) 2019 Pneumococcal Vaccine: 50+ Years (2 of 2 - PCV) 02/20/2022 02/20/2021 Lipid Panel 02/08/2023 02/08/2022, 08/09/2021 COVID-19 Vaccine (4 - 2024-2 6 season) 2025 08/27/2021, 01/29/2021, 01/03/2021 RSV Immunization or 60+ Years (1 - 1-dose 75+ series) 2029 Meningococcal B Vaccine Aged Out No l onger eligible based on patient's age to complete this topic Meningococcal Vaccine Aged Out No ken shiva eligible based on patient's age to complete this topic RSV Immunizations Under 20 Months Aged Out No longer eligible b ased on patient's age to complete this topic Insurance [employer] Care Teams Recapper Relationship Specialty Start Date End Date Daly Cabrera MD PCP - General INTERNAL MEDICINE 04/05/22
--- OUTSIDE RECORDS SUMMARY | 2025-07-28 16:17 | XMS_ITS | Clinical Summary ---
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 Gender Identity Not on file Sexual Orientation Not on file Plan of Treatment Health Maintenance Due Date Last Done Comments Hepatitis C Virus (HCV) Screening 1955 TdaP Immunization 1955 Cologuard 1999 Colonoscopy 1999 Colorectal Cancer Screening 1999 Immunochemical Fecal Occult Blood 1999 Pneumococcal Immunization (5 0+ years) (1 of 1 - PCV) 2004 Zoster Immunization (1 of 2) 2004 SARS-COV-2 Immunization (1 - 2023- season) 2024 Influenza Immunization (#1) 2025 09/08/2020 Respiratory Syncytial Virus (RSV) Immunization (Adult) (1 - 1-dose 75+ series) 2029 Hepatitis B Immunization Aged Out No longer eligible based on patient's age to complete this topic Human Papillomavirus (HPV) Immunization Aged Out No longer eligible b ased on patient's age to complete this topic Meningococcal Immunization (ACWY) Aged Out No longer eligible based on patient's age to complete this topic Rotavirus Immunization Aged Out No lo nger eligible based on patient's age to complete this topic
--- OUTSIDE RECORDS SUMMARY | 2025-07-28 16:17 | XMS_ITS | Encounter Summary ---
Author Organization [facility] Address [facility] [place] [address] Care Team Providers Care Used Car Sales Supervisor Name Role Phone Alex Barnett MD Primary Care Provider + [phone] Daly Cabrera MD Primary Care Provider [phone] Encounter Details Date Type Department Care Team (Late st Contact Info) Description 09/28/2017 [place] [address] , Generic ConversionMD Social History Tobacco Use Types Packs/Day Years Used Date Smoking Tobacco: Never Assessed Comments Unknown Sex and Gender Information Value Date Recorded Sex Assigned at Not on file Legal Sex Female 5:58 PM CDT Gender Identity Female 03/19/2022 9:28 AM CDT Sexual Orientation Straight 03/19/2022 9: 28 AM CDT documented as of this encounter Plan of Treatment Not on file documented as of this encounter Visit Diagnoses Not on filedocumented in this encounter Care Teams Used Car Sales Supervisor Relationship Specialty Start Date End Date Alex Barnett MD [address] [place] [address] PCP - General 09/25/15 04/04/22 Daly Cabrera MD [address] [place] [address] PCP - General INTERNAL MEDICINE 04/05/22 documented as of this encounter
== END 2025-07-28 14:50 | disposition home or self-care (01) ==
LOC: ANHFOHIMG 14:51
PROVIDERS: PCP Internal Medicine; Visit Provider Internal Medicine
DX: Z12.31 Encounter for screening mammogram for malignant neoplasm of breast (principal)
CPT/HCPCS: 77063; 77067

== ENCOUNTER 2025-08-05 12:44 | Outpatient (CLI) | payer OTHER, SELFPAY ==
--- NOTE | ~2025-08-05 | DEXA_ITS ---
Bone Density Report Name: KISHA BECERRIL Age: 69 Sex: Female Ethnicity: White Date of : 1955 Indication: postmenopausal; screening for osteoporosis; Referring Provider: UNKNOWN, UNKNOWN Study: Bone densitometry was performed. Exam Date: August 05, 2025 Accession number: [id number] Bone Density: Region BMD T-score Z-score Classification AP Spine(L1-L4) 0.975 -0.7 1.5 Normal Femoral Neck (Left) 0.588 -2.3 -0.5 Osteopenia Total Hip (Left) 0.953 0.1 1.6 Normal Femoral Neck (Right) 0.594 -2.3 -0.5 Osteopenia Total Hip (Right) 0.935 -0.1 1.5 Normal Total Hip Mean 0.944 0.0 1.6 Normal World Health Organization criteria for BMD impression classify patients as: Normal (T-score at or above -1.0), Osteopenia (T-score between -1.0 and -2.5), or Osteoporosis (T-score at or below -2.5). 10-year Fracture Risk(1): Major Osteoporotic Fracture 12% Hip Fracture 2.7% Reported Risk Factors: [place] (), Neck BMD=0.588, BMI=33.7 (1) FRAX(R) Version 3.08. Fracture probability calculated for an untreated patient. Fracture probability may be lower if the patient has received treatment. Previous Exams: Region Exam Age BMD T-score BMD Change BMD Change Date g/cm2 vs Baseline vs Previous AP Spine (L1-L4) 08/05/2025 69 0.975 -0.7 -0.045 (-4.4%) -0.037 (-3.6%) 02/16/2015 59 1.011 -0.3 -0.008 (-0.8%) -0.008 (-0.8%) 01/24/2012 56 1.020 -0.2 Total Hip(Left) 08/05/2025 69 0.953 0.1 -0.027 (-2.8%) 0.001 (0.1%) 03/20/2021 65 0.952 0.1 -0.028 (-2.9%) -0.028 (-2.9%) 02/16/2015 59 0.980 0.3 0.000 (0.0%)# 0.000 (0.0%)# 01/24/2012 56 0.980 0.3 Total Hip(Right) 08/05/2025 69 0.935 -0.1 0.032 (3.5%)# 0.015 (1.6%) 03/20/2021 65 0.920 -0.2 0.017 (1.8%)# -0.016 (-1.7%) 02/16/2015 59 0.937 0.0 0.033 (3.7%)# 0.033 (3.7%)# 01/24/2012 56 0.904 -0.3 *Denotes significance at 95% confidence level, LSC for AP Spine = 0.022 g/cm2, LSC for Total Hip = 0.027 g/cm2 # Denotes dissimilar scan types or analysis methods Clinical Information Provided by Patient: Impression: The patient has low bone mass, based on the Left Femoral Neck T-score. The patient has an estimated ten-year risk of hip fracture of 2.7% and an estimated ten-year risk of major fracture of 12%, based on the WHO FRAX algorithm. The BMD for the AP Spine (L1-L4) decreased, changing by -3.6% since the last DXA exam. Discussion: BONE DENSITY IS LOW AT ONE OR MORE SKELETAL SITES. This patient's lowest T-score is low at one or more skeletal sites. It meets the World Health Organization's (WHO) criteria for ?low bone mass? (T-score between -1.0 and -2.5). The patient's 10-year risk of fracture as calculated by FRAX is less than the threshold where pharmacological therapy is recommended by the National Osteoporosis Foundation (NOF). However, all treatment decisions require clinical judgment and consideration of individual patient factors, including patient preferences, comorbidities, previous drug use, risk factors not captured in the FRAX model (e.g., frailty, falls, vitamin D deficiency, increased bone turnover, interval significant decline in bone density) and possible under or overestimation of fracture risk by FRAX. The patient should follow a healthful lifestyle (good nutrition with adequate calcium and vitamin D, and appropriate weight-bearing exercise). Follow-Up: Consider repeating this study in 2 years to reassess this patient's status, or sooner if there is some new clinical indication. Reported by: FRACISCO on 08/05/2025 1:23:00 PM. Reviewed, dictated and finalized at location A.
--- OUTSIDE RECORDS SUMMARY | 2025-08-05 14:20 | XMS_ITS | Clinical Summary ---
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
== END 2025-08-05 12:45 | disposition home or self-care (01) ==
LOC: ANHFOHIMG 12:46
PROVIDERS: PCP Internal Medicine
DX: M85.852 Other specified disorders of bone density and structure, left thigh (principal); M85.851 Other specified disorders of bone density and structure, right thigh; Z78.0 Asymptomatic menopausal state
CPT/HCPCS: 77080